=== PATIENT | male | born 1975 | race Caucasian/White ===

== ENCOUNTER 2020-04-07 07:09 | Emergency (ER) | payer OTHER ==
--- NOTE | 2020-04-07 07:27 | PDOC ---
History of Present Illness - General Stated Complaint: FLANK PAIN Time Seen by Provider: 04/07/20 07:26
[2020-04-07 07:35] VITALS: BMI 28.0
--- NOTE | 2020-04-07 07:39 | PDOC ---
History of Present Illness - General History Source: Patient Exam Limitations: No Limitations - History of Present Illness Initial Comments: 04/07/20 07:47 44y previously healthy M presenting w intermittent R flank pain radiating to R suprapubic region and increased urinary frequency starting at 10pm last night. Didn't take any meds for symptoms. Denies fever, n/v, chest pain, bowel mvmt changes. <Sergio Naranjo - Last Filed: 04/07/20 10:35> <Lolita Viera - Last Filed: 04/09/20 12:31> - General Chief Complaint: Pain, Acute Stated Complaint: FLANK PAIN Time Seen by Provider: 04/07/20 07:26 Past History - Psycho-Social/Smoking History Smoking History: Never smoked Have you smoked in the past 12 months: No If you are a former smoker, when did you quit?: Vaping Information on smoking cessation initiated: Yes - Substance Abuse Hx (Audit-C & DAST Scrn) How often the patient has a drink containing alcohol: Never Score: In Men: 4 or > Positive; In Women: 3 or > Positive: 0 Screen Result (Pos requires Nsg. Audit-10AR): Negative In the last yr the pt used illegal drug/Rx for NonMed reason: No Score: Yes response is considered Positive: 0 Screen Result (Positive result requires Nsg. DAST-10): Negative <Sergio Naranjo - Last Filed: 04/07/20 10:35> <Lolita Viera - Last Filed: 04/09/20 12:31> - Medical History Allergies/Adverse Reactions: Allergies Allergy/AdvReac Type Severity Reaction Status Date / Time No Known Allergies Allergy Verified 04/07/20 07:42 Home Medications: Ambulatory Orders Levofloxacin [Levaquin] 750 mg PO DAILY 5 Days #5 tablet 04/07/20 Review of Systems - Review of Systems Constitutional: No: Chills, Fever HEENTM: No: Eye Pain, Nose Congestion Respiratory: No: Cough, Shortness of Breath Cardiac (ROS): No: Chest Pain, Palpitations ABD/GI: No: Constipated, Diarrhea, Nausea, Vomiting : Yes: Frequency, Pain. No: Burning, Discharge Musculoskeletal: No: Back Pain, Joint Pain Integumentary: No: Bruising, Flushing Neurological: No: Headache, Seizure Psychiatric: No: Anxiety, Depression Endocrine: No: Intolerance to Cold, Intolerance to Heat Hematologic/Lymphatic: No: Anemia, Blood Clots <Sergio Naranjo - Last Filed: 04/07/20 10:35> *Physical Exam - Vital Signs Last Vital Signs Temp Pulse Resp BP Pulse Ox 98.7 F 107 H 20 136/93 100 04/07/20 07:29 04/07/20 07:29 04/07/20 07:29 04/07/20 07:29 04/07/20 07:29 - Physical Exam General Appearance: Yes: Nourished, Appropriately Dressed. No: Apparent Distress HEENT: positive: EOMI, ORI, Normal Voice. negative: Scleral Icterus (R), Scleral Icterus (L) Respiratory/Chest: positive: Lungs Clear, Normal Breath Sounds. negative: Chest Tender, Respiratory Distress Cardiovascular: positive: Regular Rhythm, S1, S2, Tachycardia. negative: Edema, Murmur Gastrointestinal/Abdominal: positive: Normal Bowel Sounds, Flat, Soft. negative: Tender, Organomegaly Musculoskeletal: negative: CVA Tenderness (R), CVA Tenderness (L) Integumentary: positive: Normal Color, Warm Neurologic: positive: Fully Oriented, Alert, Normal Mood/Affect, Normal Response, Responsive <Sergio Naranjo - Last Filed: 04/07/20 10:35> - Vital Signs Last Vital Signs Temp Pulse Resp BP Pulse Ox 98.0 F 71 18 128/89 97 04/07/20 11:18 04/07/20 11:18 04/07/20 11:18 04/07/20 11:18 04/07/20 11:18 <Lolita Viera - Last Filed: 04/09/20 12:31> ED Treatment Course - LABORATORY CBC & Chemistry Diagram: 04/07/20 08:10 04/07/20 08:10 <Sergio Naranjo - Last Filed: 04/07/20 10:35> - LABORATORY CBC & Chemistry Diagram: 04/07/20 08:10 04/07/20 08:10 - ADDITIONAL ORDERS Additional order review: 04/07/20 08:10 Urine Culture - Final Urine - Urine Clean Catch NO GROWTH OBTAINED 04/07/20 08:10 RBC 5.11 MCV 85.1 MCHC 33.7 RDW 13.4 MPV 9.3 Neutrophils % 87.0 H Lymphocytes % 7.5 L Monocytes % 4.8 Eosinophils % 0.3 Basophils % 0.4 - Medications Given in the ED: ED Medications Discontinued Medications Generic Name Dose Route Start Last Admin Trade Name Ermelinda PRN Reason Stop Dose Admin Acetaminophen 975 mg 04/07/20 07:48 04/07/20 11:12 Tylenol - PO 04/07/20 07:49 Not Given ONCE ONE Acetaminophen 1,000 mg 04/07/20 08:45 04/07/20 09:02 Ofirmev Injection - IVPB 04/07/20 08:46 1,000 mg ONCE ONE Administration Ceftriaxone Sodium 1 gm/ 100 mls @ 200 mls/hr 04/07/20 09:16 04/07/20 11:08 Dextrose IVPB 04/07/20 09:45 200 mls/hr ONCE ONE Administration Lactated Ringer's 1,000 ml 04/07/20 07:51 04/07/20 09:02 Lactated Ringers Solution IV 04/07/20 07:52 1,000 ml ONCE ONE Administration <Lolita Viera - Last Filed: 04/09/20 12:31> Medical Decision Making - Medical Decision Making 04/07/20 07:48 CT A/P - recently passed 3mm R calculus w mid residual R hydronephrosis, L nonobstructing nephrolithiasis testicular exam - no masses/tenderness/penile discharge --- 44y previously healthy M presenting w intermittent R flank pain radiating to R suprapubic region and increased urinary frequency starting at 10pm last night. Has UTI, recently passed 3mm R renal calculi. Low concern for appendicitis (no RLQ pain, neg CT) vs epididymitis (neg testicular exam) Given tylenol, 1L LR, rocephin DC home w levaquin, PCP f/u, supportive care <Sergio Naranjo - Last Filed: 04/07/20 10:35> Discharge - Discharge Information Problems reviewed: Yes <Sergio Naranjo - Last Filed: 04/07/20 10:35> - Discharge Information Problems reviewed: Yes <Lolita Viera - Last Filed: 04/09/20 12:31> - Discharge Information Clinical Impression/Diagnosis: Ureteral calculus UTI (urinary tract infection) Qualifiers: Urinary tract infection type: acute pyelonephritis Qualified Code(s): N10 - Acute pyelonephritis Condition: Improved Disposition: HOME - Additional Discharge Information Prescriptions: Levofloxacin [Levaquin] 750 mg PO DAILY 5 Days #5 tablet - Patient Discharge Instructions Patient Printed Discharge Instructions: DI for Urinary Tract Infection (UTI) Additional Instructions: You have a urine infection. You also recently passed a kidney stone Take the prescribed Levofloxacin as directed Take tylenol or ibuprofen if you have pain Drink lots of water Follow up with your primary care doctor
--- NOTE | 2020-04-07 07:41 | PDOC ---
Attending Attestation - Resident Resident Name: Sergio Naranjo - HPI HPI: 04/07/20 09:28 Pt presents to the ED complaining of R flank pain that started acutely yesterday and spontaneously resolved. Also complains of some mild dysuria. Denies nausea, vomiting or fever. Denies prior history of stones. Denies testicular pain or penile discharge. 04/07/20 09:31 - Physicial Exam PE: 04/07/20 09:34 Agree with resident exam. Patient is well appearing and in no acute distress. No CVA tenderness. Abdomen is soft, non tender, non distended without guarding or rebound. - Medical Decision Making 04/07/20 10:49 Pt presents to the ED complaining of R flank pain that has now resolved and dysuria. Symptoms consistent with renal stone. UA shows evidence of UTI. Ct shows stone in the bladder with mild residual hydro. PAtient is well appearing and tolerating PO. Will discharge home with treatment for pyelonephritis and instructions to return for worsening symptoms. 04/07/20 10:54 Discharge - Discharge Information Problems reviewed: Yes Clinical Impression/Diagnosis: Ureteral calculus UTI (urinary tract infection) Qualifiers: Urinary tract infection type: acute pyelonephritis Qualified Code(s): N10 - Acute pyelonephritis Condition: Improved Disposition: HOME - Additional Discharge Information Prescriptions: Levofloxacin [Levaquin] 750 mg PO DAILY 5 Days #5 tablet - Follow up/Referral - Patient Discharge Instructions Patient Printed Discharge Instructions: DI for Urinary Tract Infection (UTI) Additional Instructions: You have a urine infection. You also recently passed a kidney stone Take the prescribed Levofloxacin as directed Take tylenol or ibuprofen if you have pain Drink lots of water Follow up with your primary care doctor - Post Discharge Activity
[2020-04-07] MEDS ORDERED: ACETAMINOPHEN 500 MG TABLET (FP) PO ONE (07:48)
[2020-04-07] MEDS ORDERED: LACTATED RINGERS SOLUTION 1000 ML INFUS.BAG IV ONE (07:51)
[2020-04-07 08:37] LABS: BASO % 0.4 % (0-2.0); EOS % 0.3 % (0-4.5); HEMATOCRIT 43.5 % (35.4-49); HEMOGLOBIN 14.7 GM/dL (11.7-16.9); LYMPH % 7.5 % (8-40); MCH 28.7 pg (25.7-33.7); MCHC 33.7 g/dl (32.0-35.9); MEAN CELL VOLUME 85.1 fl (80-96); MEAN PLT VOLUME 9.3 fl (7.5-11.1); MONO % 4.8 % (3.8-10.2); PLATELET COUNT 317 K/MM3 (134-434); RBC 5.11 M/mm3 (4.00-5.60); RDW 13.4 % (11.9-15.9); WHITE BLOOD COUNT 13.6 K/mm3 (4.0-10.0)
[2020-04-07 08:38] LABS: EPI CELLS 2 /uL (0-25.1); HYALINE CASTS 1 /uL (0-3.1); URINE APPEARANCE CLEAR; URINE BACTERIA 121 /uL (0-1359); URINE BILIRUBIN NEGATIVE (NEGATIVE); URINE COLOR YELLOW; URINE GLUCOSE (UA) NEGATIVE (NEGATIVE); URINE KETONE NEGATIVE (NEGATIVE); URINE LEUK ESTERASE NEGATIVE (NEGATIVE); URINE NITRITE NEGATIVE (NEGATIVE); URINE PROTEIN NEGATIVE (NEGATIVE); URINE RBC 29 /uL (0-23.9); URINE UROBILINOGEN 0.2 mg/dL (0.2-1.0); URINE WBC 16 /uL (0-25.8)
[2020-04-07] MEDS ORDERED: ACETAMINOPHEN 1000 MG/100 ML VIAL (NON FORMULARY) IVPB ONE (08:45)
[2020-04-07] MEDS ORDERED: ACETAMINOPHEN INJECTION 100 ML IVPB ONE (08:52)
[2020-04-07 09:12] LABS: ALBUMIN 4.2 g/dl (3.4-5.0); BILIRUBIN,TOTAL 1.1 mg/dL (0.2-1); CALCIUM 9.2 mg/dL (8.5-10.1); CREATININE 1.1 mg/dL (0.55-1.3); POTASSIUM 4.6 mmol/L (3.5-5.1); TOT PROT 7.9 g/dl (6.4-8.2)
[2020-04-07] MEDS ORDERED: CEFTRIAXONE 1 GM in DEXTROSE 5%-WATER - 100 ML IVPB ONE (09:16)
[2020-04-07] MEDS ORDERED: CEFTRIAXONE 1 GM/50 ML BAG ONE (10:56)
[2020-04-07 11:20] VITALS: BP 128/89; PULSE 71; TEMP 98
== END 2020-04-07 11:41 | disposition home or self-care (01) ==
LOC: JER 07:09
PROC: 3E033NZ Introduction of Analgesics, Hypnotics, Sedatives into Peripheral Vein, Percutaneous Approach (ICD-10-PCS; principal; 2020-04-07)
PROC: 3E0337Z Introduction of Electrolytic and Water Balance Substance into Peripheral Vein, Percutaneous Approach (ICD-10-PCS; 2020-04-07)
DX: N20.1 Calculus of ureter (principal); N10 Acute pyelonephritis
CPT/HCPCS: 36415; 74176-TC; 80053; 81003; 85025; 87086; 99285-25; J0131